=== PATIENT | male | born 1970 | race Caucasian/White ===

== ENCOUNTER 2024-09-27 09:18 | Emergency (ER) | payer BC ==
[2024-09-27 10:58] LABS: INFLUENZA A NAA NEGATIVE (NEGATIVE); INFLUENZA B NAA NEGATIVE (NEGATIVE); RESPIRATORY SYNCYTIAL VIR NAA NEGATIVE (NEGATIVE)
[2024-09-27 11:02] LABS: CORONAVIRUS COVID-19 NAA NEGATIVE (NEGATIVE)
== END 2024-09-27 11:31 | disposition home or self-care (01) ==
LOC: LB.ED 09:18
DX: J02.9 Acute pharyngitis, unspecified (principal)
CPT/HCPCS: 0241U; 99283